=== PATIENT | male | born 1980 | race Caucasian/White ===

== ENCOUNTER 2017-04-14 14:28 | Emergency (ER) | payer BC ==
--- NOTE | 2017-04-14 14:41 | ED Physician Chart ---
ED Chief Complaint/HPI - Patient Information Date Seen:: 04/14/17 Time Seen:: 14:35 Chief Complaint:: R middle toe pain since about 2 pm today. History of Present Illness:: Pt came in by private auto because he accidentally impacted his R middle toe against a metal leg of a bed. Pt remains ambulatory. R middle toe pain can be worsened with wt bearing activity. No LOC. No other bodily injury or pain. Allergies:: ceftriaxone Vitals:: see Nurse Note. Historian:: Patient Family MD/PCP:: Unknown. LMP:: N/A Review:: Nurse's Note Reviewed ED Review of Systems - Review of Systems General/Constitutional: No fever, No weight loss, No weakness, No edema, No loss of appetite Skin: No rash, Bruising (Mild bruise at proximal R middle toe.) Head: No headache, No light-headedness Eyes: No loss of vision, No pain ENT: No earache, No nasal drainage, No sore throat, No tinnitus Neck: No neck pain, No swelling, No stiffness Cardio Vascular: No chest pain, No palpitations, No edema Pulmonary: No SOB, No cough, No wheezing GI: No nausea, No vomiting, No diarrhea, No pain Musculoskeletal: Bone or joint pain (Pain at R middle toe.) Endocrine: No polyuria, No polydipsia Psychiatric: No prior psych history Hematopoietic: No lymphadenopathy Allergic/Immuno: No urticaria, No angioedema Neurological: No syncope, No focal symptoms, No weakness, No paresthesia, No headache, No dizziness, No confusion ED Past Medical History - Past Medical History Past Medical History: Other (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 Hernandez.) Family History: Diabetes Melitus (MGF), Cancer (father, P uncle.) Social History: Non Smoker, No Alcohol, No Drug Use, , Employed, Other ( lives with his .) Surgical History: Cholecystectomy (Laparoscopic cholecystectomy about 4 y/a) Psychiatricy History: None Medication: Reviewed Family Medical History - Family Member Mother Living Status: Still Living Other Medical History: no med. prob. ED Physical Exam - Physical Examination General/Constitutional: Awake, Well-developed, well-nourished, Alert, No distress, GCS 15, Non-toxic appearing, Ambulatory Other Gen/Cons comments:: Breathes comfortably, speaks clearly, and ambulates without difficulty. Head: Atraumatic Eyes: Lids, conjuctiva normal, PERRL, EOMI Skin: Nl inspection, No rash, No skin lesions, Well hydrated, No lymphadenopathy ENMT: External ears, nose nl, Nasal exam nl, Oropharynx nl Neck: Nontender, Full ROM w/o pain, No nuchal rigidity, No mass, No stridor Respiratory: Nl effort/Exclusion, Clear to Auscultation, No Wheeze/Rhonchi/Rales Cardio Vascular: RRR, No murmur, gallop, rubs GI: No tenderness/rebounding/guarding, No organomegaly, Normal BS's, Nondistended Other GI comments:: Abdomen is soft. Other Extremities comments:: RLE: R middle toe has mild ecchymosis with minimal edema at proximal phalanx. No gross deformity, erythema, or open wound. Good ROM. No detectable motor/ sensory/vascular deficit. Good distal capillary refill. Neuro/Psych: Alert/oriented (oriented x 3), Judgement/insight normal, Mood normal, Normal gait, No focal deficits ED Labs/Radiology/EKG Results - Radiology Results Results: X-ray of R third toe: Based on my interpretation, midshaft fracture of proximal phalanx with minimal displacement. Official report is pending. ED Septic Shock - . Is Septic Shock (SBP<90, OR Lactate>4 mmol\L) present?: No ED Reassessment (Disposition) - Reassessment Reassessment:: 1505 Pt remains stable. Pain medication was offered, but pt declined. Pt states that he had Tylenol before coming to ER. He feels more comfortable now. Awaiting X-ray to R middle toe. 1610 Pt remains stable and comfortable. R middle toe X-ray just became available. Radiological findings have been reviewed with pt. Pt requests to go home now. Aftercare instructions have been given. Reassessment Condition:: Improved - Diagnosis Diagnosis:: R middle toe midshaft fracture without significant displacement. - Aftercare/Follow up Instructions Aftercare/Follow-Up Instructions:: Refer to Discharge Instructions Notes:: Wear radha splint of R 3rd to 4th toe as directed. Radha splint was checked after it was placed by nursing staff. It was placed properly without neurovascular deficit. May take Tylenol 500 mg tab one tab po q6h prn pain. Fracture instructions given. Avoid wt bearing on R foot. Use crutches. F/U with Dr. Dixon or PCP of pt's choice in one day for recheck and orthopedic referral. Return to ER immediately if condition worsens or if any further questions/problems. Medication Prescribed:: None - Patient Disposition Discharge/Transfer:: Home Time:: 16:30 Condition at Disposition:: Stable, Improved ED Discharge Plan - Patient Disposition Admit/Discharge/Transfer: PT DISCHARGED HOME Condition at Disposition: Stable Instructions: Crutch Use, [id number], Toe Fracture, [id number] Forms: Work Release Form
--- NOTE | 2017-04-15 08:17 | Diagnostic Imaging Report ---
Exam: Right foot. HISTORY: Injury right third toe. Findings: Multiple views of right foot reviewed. The study demonstrates a essentially nondisplaced fracture of the middle shaft of the proximal phalanx right third toe. The fracture does not extend into the articulating surfaces. Small amount of soft tissue swelling is present. IMPRESSION: Essentially nondisplaced report fracture mid shaft of the proximal phalanx right third toe.
== END 2017-04-14 16:51 | disposition home or self-care (01) ==
LOC: ER 14:28
DX: S92.911A Unspecified fracture of right toe(s), initial encounter for closed fracture (principal); D64.9 Anemia, unspecified; G89.29 Other chronic pain; X58.XXXA Exposure to other specified factors, initial encounter; Y93.89 Activity, other specified; Y92.89 Other specified places as the place of occurrence of the external cause; Y99.8 Other external cause status
CPT/HCPCS: 73660-TC-T7; Z7502